=== PATIENT | male | born 1965 | race Two or more races ===

== ENCOUNTER 2020-06-29 12:48 | Emergency (ER) | payer OTHER ==
[~2020-06-29] VITALS: Ht 167.6 cm; Wt 72.6 kg
[2020-06-29] MEDS ORDERED: AMOXICILLIN875 MG (13:04)
[2020-06-29] MEDS ORDERED: KETO10TA2 (13:04)
== END 2020-06-29 15:54 | disposition home or self-care (01) ==
LOC: ER 12:48
DX: H57.12 Ocular pain, left eye (principal)